=== PATIENT | male | born 1965 | race Two or more races ===

== ENCOUNTER 2017-09-13 14:24 | Emergency (ER) | payer OTHER, MEDICAID ==
[~2017-09-13] VITALS: Ht 167.6 cm; Wt 79.4 kg
[~2017-09-13 14:24] MED LIST: NKM
[2017-09-13] MEDS ORDERED: HYDROcodone/Acetamin 7.5/325 tab ORAL ONE (15:00)
--- NOTE | 2017-09-13 15:39 | Emergency Room Report ---
History of Present Illness General Chief Complaint: Lower Extremity Injury Source: Patient Present Illness HPI 52-year-old male presents to the emergency department complaining of localized swelling, tenderness and 10 out of 10 pain when bearing weight to the left knee since yesterday. Patient reports currently while resting he has 0 out of 10 pain. 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 Patient states pain is exacerbated upon weight-bearing as well as extension of the left knee. Patient denies previous injury to this extremity. He denies hitting his head or having neck or back pain. Denies numbness tingling or loss of sensation or gross motor movements of the extremities, incontinence of bowel or bladder. Denies CP, Palpitations, LOC, AMS , dizziness, Changes in Vision, weakness or a sudden severe headache. Allergies: Coded Allergies: PENICILLINS (Unverified Allergy, Unknown, 01/17/16) Uncoded Allergies: PENICILLIN (Allergy, Unknown, 01/17/16) Patient History Past Medical History: see triage record Past Surgical History: none Pertinent Family History: none Reviewed Nursing Documentation: PMH: Agreed; PSxH: Agreed Review of Systems All Other Systems: negative except mentioned in HPI Physical Exam Vital Signs Date Time Temp Pulse Resp B/P (MAP) Pulse Ox O2 Delivery O2 Flow Rate FiO2 09/13/17 14:32 98.6 100 19 152/95 95 Room Air 98.6 Sp02 EP Interpretation: reviewed, normal General Appearance: no apparent distress, alert, GCS 15, non-toxic Head: normocephalic, atraumatic ENT: hearing grossly normal, normal voice Neck: full range of motion Respiratory: lungs clear, normal breath sounds, speaking full sentences Cardiovascular #1: regular rate, rhythm Rectal: deferred Genitourinary: normal inspection Musculoskeletal: back normal, normal range of motion, swelling - left knee, tender - left knee, moderate swelling, significant pain with grind test, no major increased laxity of ligaments, negative anterior and posterior drawer signs. Neurologic: alert, oriented x3, responsive, motor strength/tone normal, sensory intact, speech normal, grossly normal Psychiatric: judgement/insight normal Skin: normal color, no rash, warm/dry, well hydrated Medical Decision Making PA Attestation Dr. dowell is my supervising Physician whom patient management has been discussed with. Diagnostic Impression: Primary Impression: Knee effusion, left Additional Impressions: Soft tissue injury of left knee Qualified Codes: S89.92XA - Unspecified injury of left lower leg, initial encounter Left knee sprain Qualified Codes: S83.92XA - Sprain of unspecified site of left knee, initial encounter ER Course 52-year-old male presents to the emergency department complaining of localized swelling, tenderness and 10 out of 10 pain when bearing weight to the left knee since yesterday. Patient reports currently while resting he has 0 out of 10 pain. 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 Patient states pain is exacerbated upon weight-bearing as well as extension of the left knee. Patient denies previous injury to this extremity. He denies hitting his head or having neck or back pain. Denies numbness tingling or loss of sensation or gross motor movements of the extremities, incontinence of bowel or bladder. Denies CP, Palpitations, LOC, AMS , dizziness, Changes in Vision, weakness or a sudden severe headache. Ddx considered but are not limited to Fracture, dislocation, contusion, Sprain/ Strain/Spasm, Meniscal injury, tendon rupture just to name a few. Vital signs: are WNL, pt. is afebrile H&PE are most consistent with musculoskeletal injury will perform imaging to r/ o fractures/dislocations. ORDERS: - X-ray Left knee - negative for fx, Dislocation, or significant soft tissue injury, per preliminary read in ED, and signed by LACEY Valdes, my supervising physician has reviewed, and agrees with my interpretation. ED INTERVENTIONS: - Nome PO -Knee Immobilizer splint applied to the Left Knee by site supervising technical operator. Pt. remains neurovascularly intact. --Patient is provided with crutches and instructed on their use DISCHARGE: At this time pt. is stable for d/c to home. Will provide printed patient care instructions, and any necessary prescriptions. Care plan and follow up instructions have been discussed with the patient prior to discharge. Other X-Ray Diagnostic Results Other X-Ray Diagnostic Results : X-Ray ordered: Left Knee # of Views/Limited Vs Complete: 3 View Indication: Pain EP Interpretation: Yes PA Xray: Interpretation reviewed, by supervising MD, and agrees with findings. Interpretation: no dislocation, no soft tissue swelling, no fractures Impression: No acute disease Electronically Signed by: Merari Valdes PA-C Last Vital Signs Date Time Temp Pulse Resp B/P (MAP) Pulse Ox O2 Delivery O2 Flow Rate FiO2 09/13/17 14:56 98.6 09/13/17 14:32 100 19 152/95 95 Room Air Disposition: HOME, SELF-CARE Condition: Stable Scripts Hydrocodone Bit/Acetaminophen 5-325* (NORCO 5-325*) 1 Each Tablet 1 TAB ORAL Q6H PRN for For Pain, #12 TAB 0 Refills Prov: Merari Valdes 09/13/17 Ibuprofen* (MOTRIN*) 600 Mg Tablet 600 MG ORAL THREE TIMES A DAY, #30 TAB 0 Refills Prov: Merari Valdes 09/13/17 Patient Instructions: Combined Knee Ligament Sprain, Knee Pain, [id number]-dw-[id number], Meniscus Injury Additional Instructions: Take medications as directed. Follow up with an [employer]LECT[employer]INEER MEP in 3-5 days, even if your symptoms have resolved. --Please review list of primary care clinics, if you do not already have a primary care provider who can give you an Orthopedic Referral. Return sooner to ED if new symptoms occur, or current symptoms become worse. Do not drink alcohol, drive, or operate heavy machinery while taking Nome as this may cause drowsiness. - Please note that this Emergency Department Report was dictated using [employer] messenger [employer] technology software, occasionally this can lead to erroneous entry secondary to interpretation by the dictation equipment. Merari Valdes Sep 13, 2017 15:39
[2017-09-13] MEDS ORDERED: IBUPROFEN600 MG ORAL (15:45)
[2017-09-13] MEDS ORDERED: NORCO 5-325 TA1 EACH ORAL (15:45)
[2017-09-13 15:58] VITALS: BP 148/90
--- NOTE | 2017-09-13 16:03 | Diagnostic Imaging Report ---
Indication: Knee pain Technique: 3 views of the left knee Comparison: None Findings: There is minimal narrowing of the medial joint compartment and of the patellofemoral joint compartment. There are degenerative proliferative changes of all 3 compartments. There is a small suprapatellar effusion. No acute fractures. No dislocations. Impression: Degenerative changes. No acute bony trauma
== END 2017-09-13 16:00 | disposition home or self-care (01) ==
LOC: EMR 15:06
DX: M25.462 Effusion, left knee (principal); S83.92XA Sprain of unspecified site of left knee, initial encounter; W19.XXXA Unspecified fall, initial encounter; Y92.9 Unspecified place or not applicable; Z88.0 Allergy status to penicillin
CPT/HCPCS: 99284